=== PATIENT | male | born 1990 | race Caucasian/White ===

== ENCOUNTER 2016-06-07 11:44 | Emergency (ER) | payer BC ==
[~2016-06-07] VITALS: Ht 167.6 cm; Wt 72.6 kg
[~2016-06-07 11:44] MED LIST: ACETAMINOPHEN-1 EAC1 PO; CLEOCIN HCL150 MG PO; NORCO 5-325 TA1 EACH PO; PENICILLIN VK500 M1 PO; TYLENOL325 MG PO; ULTRAM 50MG TAB50 MG PO
[2016-06-07] MEDS ORDERED: AUGMENTIN 875875 MG PO (13:20)
[2016-06-07] MEDS ORDERED: NORCO 5-325 TA1 EACH PO (13:22)
[2016-06-07 13:51] VITALS: BP 149/75
== END 2016-06-07 13:52 | disposition home or self-care (01) ==
LOC: ER 11:44
DX: S61.452A Open bite of left hand, initial encounter (principal); W54.0XXA Bitten by dog, initial encounter; Y93.89 Activity, other specified; Y92.89 Other specified places as the place of occurrence of the external cause; Y99.8 Other external cause status; Z88.6 Allergy status to analgesic agent; Z88.3 Allergy status to other anti-infective agents; Z88.8 Allergy status to other drugs, medicaments and biological substances

== ENCOUNTER 2017-07-07 10:16 | Emergency (ER) | payer BC ==
[~2017-07-07] VITALS: Ht 167.6 cm; Wt 68.0 kg
[~2017-07-07 10:16] MED LIST changes: +AUGMENTIN 875875 MG PO
[2017-07-07] MEDS ORDERED: TRAMADOL 50 MG50 MG PO (12:10)
[2017-07-07] MEDS ORDERED: NORFLEX100 MG PO (12:10)
[2017-07-07 12:29] VITALS: BP 125/81
== END 2017-07-07 12:30 | disposition home or self-care (01) ==
LOC: ER 10:16
DX: S16.1XXA Strain of muscle, fascia and tendon at neck level, initial encounter (principal); S29.012A Strain of muscle and tendon of back wall of thorax, initial encounter; F17.210 Nicotine dependence, cigarettes, uncomplicated; Z88.6 Allergy status to analgesic agent; Z88.8 Allergy status to other drugs, medicaments and biological substances; W18.39XA Other fall on same level, initial encounter; Y93.89 Activity, other specified; Y92.89 Other specified places as the place of occurrence of the external cause; Y99.8 Other external cause status